=== PATIENT | male | born 1945 | race Caucasian/White ===

== ENCOUNTER 2018-10-08 09:51 | Outpatient (CLI) | payer BC, SELFPAY ==
[2018-10-08 11:15] LABS: INR 2.4 (0.9-1.1); Prothrombin Time 24.6 sec (9.3-11.0)
== END 2018-10-08 10:11 ==
PROVIDERS: PCP Family Medicine; Visit Provider Internal Medicine
DX: I26.99 Other pulmonary embolism without acute cor pulmonale (principal); Z79.01 Long term (current) use of anticoagulants
CPT/HCPCS: 36415; 85610

== ENCOUNTER 2018-11-05 09:44 | Outpatient (CLI) | payer BC, SELFPAY ==
[2018-11-05 10:58] LABS: INR 4.1 (0.9-1.1)
== END 2018-11-05 10:04 ==
PROVIDERS: PCP Family Medicine; Visit Provider Internal Medicine
DX: I26.99 Other pulmonary embolism without acute cor pulmonale (principal); Z79.01 Long term (current) use of anticoagulants; T50.B95A Adverse effect of other viral vaccines, initial encounter
CPT/HCPCS: 36415; 85610

== ENCOUNTER 2020-10-07 11:23 | Emergency (ER) | payer BC, SELFPAY ==
[2020-10-07 11:31] VITALS: BP 164/87; PULSE 69; RESP 16; TEMP 37; O2SAT 97
--- NOTE | 2020-10-07 11:48 | ED.GENADUL_ITS ---
Discharge Plan Disposition Patient Disposition: HOME Condition: Good Discharge Details Clinical Impression: Tick bite Primary Care Provider: Alex Mcmillan JR ED Provider: Dixie Preciado Home Meds and New Rx's Prescriptions: Continued warfarin [Coumadin] 7.5 MG tablet 7.5 mg PO .M,W,R RF: 0 warfarin [Coumadin] 5 MG tablet 5 mg PO .SUN,TUES, , S/S RF: 0 tamsulosin 0.4 mg capsule 0.4 mg PO DAILY RF: 0 finasteride 5 mg tablet 5 mg PO DAILY RF: 0 Discharge Instructions Instructions: Tick Bite (ED) Additional Instructions: At this time, the surrounding redness is most consistent with typical tick bite redness. However, I would like for you to continue to monitor this area. If it spreads beyond the marking you develop fever/chills, increased pain or other new/worsening symptoms please seek care urgently once again. The type of tick that bit you does not transmit Lyme disease, I do not see any evidence to suggest Lyme at this time. Try keeping this area covered as well as it does seem to rub on your clothing. A referral for local primary care has also been sent. Please follow-up with provider in the next 2 weeks for reevaluation of this area. Referrals: Alex Mcmillan JR [Primary Care Provider] - Medical Decision Making Patient is a pleasant 75 year old gentleman presenting today with c/c of tick bite. States he was bit a few days ago. No fevers, chills, body aches. Reports feelign well otherwise. Notes area of erythema around bite site. No swelling or discharge. Notes that he removed a small area of skin when he took off the tick. This area is rubbing on his belt region. On tick identification card, he identifies the dog tick as being what he pulled off. On exam, patient appears nontoxic. He has 1.5cm area of erythema around area of bite. No fluctuance, swelling, discharge. Not consistent with erythema migrans. Area appears irritated. Does not appear actuley infected. Advised watch andwait approach. Area of erythema was marked so he is able to monitor more. i am concerned that the discomfort is from this area rubbing in his clothes. Will put bandaid over this to protect this area. Dog tick pulled off. Encouraged f/u with PCP. Patient lives here half of the year, I have asked that care management arrange for PCP locally, particularly to follow patients INR. Return precautions discussed. All of his questions and concerns were addressed, he is in agreement with mary castellano. HPI General Mode of arrival: ambulatory . Date/Time Provider Initiated Documentation: 10/07/20 11:48 . Limitations to Documentation: no limitations . Information obtained by: patient and RN notes reviewed . History of Present Illness 75 year old M presents to the emergency department with the chief complaint of tick bite left hip, described as mild, with intensity rated at 1. Quality is described as aching, and is localized to the left and lower extremity. Patient reports no radiation. Patient started experiencing this day(s) and it has been constant. No relieving factors improve symptom(s), No exacerbating factors reported . Patient notes no other symptoms.. Patient did receive the following treatments prior to arrival, none Related Data Home Medications Medication Instructions Recorded Confirmed warfarin [Coumadin] 5 mg PO .AMBER LANDIS, TH, S/S 10/03/14 10/07/20 warfarin [Coumadin] 7.5 mg PO .M,W,R 10/03/14 10/07/20 finasteride 5 mg PO DAILY 10/07/20 10/07/20 tamsulosin 0.4 mg PO DAILY 10/07/20 10/07/20 Allergies Allergy/AdvReac Type Severity Reaction Status Date / Time No Known Allergies Allergy Unverified 10/07/20 11:36 General Stated Complaint: RashLesion NATHAN: 5 Review of Systems Constitutional Constitutional: Reports as per HPI, Denies chills and Denies fever(s) Musculoskeletal Musculoskeletal: Reports as per HPI Integumentary/Breasts Skin/Breast: Reports as per HPI Neurologic Neurologic: Reports as per HPI, Denies sensory deficit and Denies paresthesias [facility] Social History Smoking/Tobacco Use Status: Never Smoking risk assessment performed?: Yes Alcohol Intake: never Drug use: Never Do you feel safe at home: Yes Exam Const General: cooperative, healthy appearing, comfortable, no acute distress and well developed Nutritional Appearance: average body habitus and well nourished Orientation: alert and awake Resp Effort & Inspection: normal respiratory effort, able to speak in complete sentences and no respiratory distress Cardio Rate: regular rate Rhythm: regular rhythm Skin General skin exam: erythema Neuro General: patient alert and patient awake Cognition: normal cognition Speech: speech normal Gait: normal gait Sensory Exam: no sensory deficits noted Extrem Upper/lower leg/hip images: 1. Patient has a focal area of erythema around small break in rafael skin. 1.5cm in diameter. Nontender to palpation. No swelling, fluctuance or drainage. No surrounding rash to suggest erythema migrans. Psych Appearance: grossly normal and well kempt Mental Status: mental status grossly normal Speech and Movement: speech and movement normal Course Vital Signs Vital signs: Vital Signs Temperature 37.0 C 10/07/20 11:31 Pulse 69 10/07/20 11:31 Respiratory Rate 16 10/07/20 11:31 Blood Pressure 164/87 H 10/07/20 11:31 Pulse Oximetry 97 10/07/20 11:31 Temperature 37.0 C 10/07/20 11:31 Pulse 69 10/07/20 11:31 Respiratory Rate 16 10/07/20 11:31 Respiratory Effort Non-Labored 10/07/20 11:35 Blood Pressure 164/87 H 10/07/20 11:31 Blood Pressure Position Sitting 10/07/20 11:31 Pulse Oximetry 97 10/07/20 11:31 Oxygen Delivery Method Room Air 10/07/20 11:31 Oxygen Flow Rate 0 10/07/20 11:31 Pain Level 1 10/07/20 11:31
--- NOTE | 2020-10-07 12:03 | NUR.NOTE ---
[id number] to olinda ton establish pcp for the six month out of the year he is in [place]
== END 2020-10-07 12:02 | disposition home or self-care (01) ==
LOC: ER 11:54
PROVIDERS: Emergency Provider Physician Assistant; PCP Family Medicine
DX: S70.262A Insect bite (nonvenomous), left hip, initial encounter (principal); W57.XXXA Bitten or stung by nonvenomous insect and other nonvenomous arthropods, initial encounter; R21 Rash and other nonspecific skin eruption
CPT/HCPCS: 99282; 99283